=== PATIENT | male | born 1985 | race Hispanic/Latino ===

== ENCOUNTER → 2017-02-01 | Outpatient (CLI) | payer OTHER ==
--- NOTE | 2017-02-01 10:09 | REP ---
LEFT HAND, FOUR VIEWS: HISTORY: Injury. There is no acute fracture or dislocation. The joint spaces are normal in appearance. IMPRESSION: There is no acute fracture or dislocation. Signed by Shakir Koehler MD 02/01/2017 10:37 A
--- NOTE | 2017-02-01 10:10 | REP ---
LEFT WRIST, FOUR VIEWS: HISTORY: Injury. There is no acute fracture or dislocation. The joint spaces are normal in appearance. IMPRESSION: There is no acute fracture or dislocation. Signed by Shakir Koehler MD 02/01/2017 10:37 A
== END ==
LOC: M RAD 08:54
PROVIDERS: ATTEND Surgery
DX: M25.532 Pain in left wrist (principal)